=== PATIENT | female | born 1995 | race Caucasian/White ===

== ENCOUNTER 2021-11-02 19:08 | Emergency (ER) | payer BC, OTHER ==
[~2021-11-02] VITALS: Ht 167.6 cm; Wt 58.1 kg
[2021-11-02 20:36] VITALS: BP 117/70
== END 2021-11-02 22:50 | disposition home or self-care (01) ==
LOC: ER 19:08
DX: S32.2XXA Fracture of coccyx, initial encounter for closed fracture (principal); W19.XXXA Unspecified fall, initial encounter; Y93.89 Activity, other specified; Y92.89 Other specified places as the place of occurrence of the external cause; Y99.8 Other external cause status
CPT/HCPCS: 72220